=== PATIENT | male | born 1945 | race African-American/Black ===

== ENCOUNTER 2016-09-30 08:43 | Emergency (ER) | payer BC, MEDICARE ==
[~2016-09-30] VITALS: Ht 170.2 cm; Wt 75.0 kg
[2016-09-30] MEDS ORDERED: ACETAMINOPHEN WITH CODEINE 300/30MG TABLET PO STA (09:25)
[2016-09-30 09:53] LABS: BASOPHILS % 0.5 % (0.0-2.0); EOSINOPHILS % 3.3 % (0.0-5.0); HEMATOCRIT. 37.5 % (42.0-52.0); HEMOGLOBIN. 12.3 g/dL (14.0-18.0); LYMPHOCYTES % 30.9 % (20.0-50.0); MEAN CORPUSCULAR HEMOGLOBIN 27.1 pg (28.0-32.0); MEAN CORPUSCULAR VOLUME 82.7 fL (80.0-94.0); MEAN PLATELET VOLUME 7.3 fl (7.4-10.4); MONOCYTES % 8.8 % (2.0-8.0); NEUTROPHILS % 56.5 % (40.0-76.0); PLATELET 169 x1000/uL (130-400); RED BLOOD CELL COUNT 4.53 mill/uL (4.7-6.1); RED CELL DISTRIBUTION WIDTH 13.9 % (11.6-14.6)
[2016-09-30 10:07] LABS: CARBON DIOXIDE 26 mEq/L (21-32); CHLORIDE 106 mEq/L (98-107)
[2016-09-30 11:43] VITALS: BP 130/80
== END 2016-09-30 12:13 | disposition home or self-care (01) ==
LOC: ER 09:32
DX: M79.662 Pain in left lower leg (principal); M79.661 Pain in right lower leg; I10 Essential (primary) hypertension; E78.00 Pure hypercholesterolemia, unspecified
CPT/HCPCS: 36415; 80053; 85025; 93970; 99285; Z7610

== ENCOUNTER 2016-11-21 04:14 | Emergency (ER) | payer BC ==
[~2016-11-21] VITALS: Ht 170.2 cm; Wt 91.0 kg
[2016-11-21] MEDS ORDERED: DEXAMETHASONE 10 MG/ML VIAL IM SCH ×2 (06:45→12:00)
[2016-11-21] MEDS ORDERED: IBUPROFEN 800MG TABLET PO ONE (06:45)
[2016-11-21 06:59] VITALS: BP 133/74
== END 2016-11-21 07:01 | disposition home or self-care (01) ==
LOC: ER 04:14
DX: M54.41 Lumbago with sciatica, right side (principal); M79.644 Pain in right finger(s); I10 Essential (primary) hypertension; E78.00 Pure hypercholesterolemia, unspecified
CPT/HCPCS: 96372; 99283; J1100; Z7610

== ENCOUNTER 2017-02-23 20:46 | Emergency (ER) | payer BC | END 2017-02-23 22:13 | disposition left against medical advice (07) | LOC: ER 21:17 | DX: R51 Headache (principal); Z53.21 Procedure and treatment not carried out due to patient leaving prior to being seen by health care provider ==

== ENCOUNTER 2017-05-25 19:59 | Emergency (ER) | payer BC | END 2017-05-25 21:30 | disposition left against medical advice (07) | LOC: ER 21:06 | DX: Z53.21 Procedure and treatment not carried out due to patient leaving prior to being seen by health care provider (principal) ==